=== PATIENT | female | born 1955 | race Caucasian/White ===

== ENCOUNTER 2021-12-30 13:44 | Inpatient (IN) | payer MEDICARE ==
[~2021-12-30] VITALS: Ht 162.6 cm; Wt 90.7 kg
[~2021-12-30 13:44] MED LIST: AMBIEN10 MG PO; BENADRYL 25MG C25 MG PO; CEFUROXIME250 MG PO; CITALOPRAM HBR40 MG PO; GLUCOTROL 10 MG10 MG PO; Glucometer; IRON325 M1 PO; JARDIANCE10 MG PO; LIPITOR40 MG PO; NEURONTIN300 MG PO; OXYCODONE HCL10 MG PO; PREDNISONE 5 MG5 MG PO; PREDNISONE5 MG PO; PROTONIX40 MG PO; REGLAN10 MG PO; WELLBUTRIN 100100 MG PO; WELLBUTRIN XL150 MG PO; ZOFRAN 4 MG TAB4 MG PO
[2021-12-30 16:09] LABS: HEMOGLOBIN 9.5 gm/dl (12.3-15.3); RED BLOOD COUNT 4.18 M/UL (4.00-5.10); WHITE BLOOD COUNT 6.8 K/UL (4.5-11.0)
[2021-12-31 06:06] LABS: HEMOGLOBIN 8.7 gm/dl (12.3-15.3); RED BLOOD COUNT 3.82 M/UL (4.00-5.10); WHITE BLOOD COUNT 5.6 K/UL (4.5-11.0)
[2021-12-31] MEDS ORDERED: FERROUS SULFAT325 MG PO (17:23)
[2021-12-31] MEDS ORDERED: GLIPIZIDE10 MG PO (17:25)
== END 2021-12-31 17:55 | disposition left against medical advice (07) | DRG 70 ==
LOC: ER1 13:44 → CDU 18:11 → MED SURG 4 18:11
PROVIDERS: Physician Assistant Medical; ADMIT Internal Medicine
PROC: B24BZZZ Ultrasonography of Heart with Aorta (ICD-10-PCS; principal; 2021-12-31)
DX: G93.40 Encephalopathy, unspecified (principal); I21.A1 Myocardial infarction type 2; N17.9 Acute kidney failure, unspecified; Z20.822 Contact with and (suspected) exposure to COVID-19; W18.30XA Fall on same level, unspecified, initial encounter; E11.9 Type 2 diabetes mellitus without complications; E66.01 Morbid (severe) obesity due to excess calories; R53.81 Other malaise; M81.0 Age-related osteoporosis without current pathological fracture; M06.9 Rheumatoid arthritis, unspecified; J44.9 Chronic obstructive pulmonary disease, unspecified; R29.6 Repeated falls; K76.0 Fatty (change of) liver, not elsewhere classified; Z79.4 Long term (current) use of insulin; Z98.890 Other specified postprocedural states; Z90.49 Acquired absence of other specified parts of digestive tract; Z90.710 Acquired absence of both cervix and uterus; Z88.8 Allergy status to other drugs, medicaments and biological substances; Z91.041 Radiographic dye allergy status; Z87.891 Personal history of nicotine dependence; Z87.81 Personal history of (healed) traumatic fracture
CPT/HCPCS: ECHO; 36415; 70450; 71045; 80048; 80053; 80307; 81001; 82140; 82550; 82553; 83605; 83880; 84484; 85025; 93005; 93306; 96372; 97162; 97530; 99285; J1650; U0002